=== PATIENT | male | born 1940 | race Caucasian/White ===

== ENCOUNTER → 2018-03-11 | Outpatient (CLI) | payer MEDICARE ==
[~2018-03-11] MED LIST: ISOVUE-370 50ML VIAL IV ONE
== END | disposition home or self-care (01) ==
LOC: OIH 09:00
PROVIDERS: ATTEND Internal Medicine Cardiovascular Disease
DX: I71.2 Thoracic aortic aneurysm, without rupture (principal)
CPT/HCPCS: 71275; 74174; Q9967

== ENCOUNTER → 2019-08-04 | Outpatient (CLI) | payer MEDICARE ==
[~2019-08-04] MED LIST changes: +IOHEXOL 350 MG/ML 100ML INFUS..BTL IV ONE; -ISOVUE-370 50ML VIAL IV ONE
== END | disposition home or self-care (01) ==
LOC: RAH 07:59
PROVIDERS: ATTEND Internal Medicine Cardiovascular Disease
DX: I71.2 Thoracic aortic aneurysm, without rupture (principal); N28.1 Cyst of kidney, acquired; K44.9 Diaphragmatic hernia without obstruction or gangrene; I25.10 Atherosclerotic heart disease of native coronary artery without angina pectoris; M51.35 Other intervertebral disc degeneration, thoracolumbar region
CPT/HCPCS: 71275; Q9967

== ENCOUNTER → 2020-11-21 | Outpatient (CLI) | payer MEDICARE | END | disposition home or self-care (01) | LOC: OIH 13:14 | PROVIDERS: ATTEND Internal Medicine | DX: M19.041 Primary osteoarthritis, right hand (principal); M19.042 Primary osteoarthritis, left hand; M17.12 Unilateral primary osteoarthritis, left knee; M85.80 Other specified disorders of bone density and structure, unspecified site | CPT/HCPCS: 73560 ==

== ENCOUNTER → 2021-06-05 | Outpatient (CLI) | payer MEDICARE ==
[2021-06-05 16:36] LABS: CREATININE 1.1 mg/dL (0.5-1.5)
== END | disposition home or self-care (01) ==
LOC: LAB 10:00
PROVIDERS: ATTEND Internal Medicine Cardiovascular Disease
DX: I10 Essential (primary) hypertension (principal)
CPT/HCPCS: 36415; 82565; 84520

== ENCOUNTER → 2021-06-13 | Outpatient (CLI) | payer MEDICARE | END | disposition home or self-care (01) | LOC: RAH 08:55 | PROVIDERS: ATTEND Internal Medicine Cardiovascular Disease | DX: I71.2 Thoracic aortic aneurysm, without rupture (principal); N28.1 Cyst of kidney, acquired | CPT/HCPCS: 71260; Q9967 ==

== ENCOUNTER → 2021-06-17 | Outpatient (CLI) | payer MEDICARE ==
[~2021-06-17] VITALS: Ht 177.8 cm; Wt 81.2 kg
[~2021-06-17] MED LIST changes: -IOHEXOL 350 MG/ML 100ML INFUS..BTL IV ONE; +REGADENOSON 0.4 MG/5 ML PF SYG IVP SCH
== END | disposition home or self-care (01) ==
LOC: SHCH 08:52
PROVIDERS: ATTEND Internal Medicine Cardiovascular Disease
DX: I48.0 Paroxysmal atrial fibrillation (principal); R06.09 Other forms of dyspnea
CPT/HCPCS: 78452; 93017; 96374; A9500 ×2; J2785

== ENCOUNTER 2021-08-07 05:54 | Day surgery (SDC) | payer MEDICARE ==
[2021-08-05 12:02] LABS: BASOPHILS % (AUTO) 0.5 % (0.0-5.0); EOSINOPHILS % (AUTO) 1.2 % (0.0-8.0); HEMATOCRIT 49.3 % (42-54); LYMPHOCYTES % (AUTO) 14.3 % (21.0-51.0); MEAN CORPUSCULAR HEMOGLOBIN 31.4 pg (27.0-33.0); MEAN CORPUSCULAR HGB CONC 32.7 g/dL (32.0-36.0); MEAN CORPUSCULAR VOLUME 96.3 fL (79-99); MONOCYTES % (AUTO) 10.7 % (3.0-13.0); NEUTROPHILS % (AUTO) 73.1 % (40.0-77.0); PLATELET COUNT (AUTO) 166 K/uL (130-400); RED BLOOD CELL COUNT(AUTO) 5.12 MIL/uL (4.50-6.20); RED CELL DISTRIBUTION WIDTH 12.2 % (11.0-15.5); WHITE BLOOD COUNT (AUTO) 8.1 K/uL (4.8-10.8)
[2021-08-05 12:07] LABS: APPEARANCE,URINE Clear (CLEAR); BILIRUBIN,URINE Negative (NEGATIVE); COLOR,URINE Yellow (YELLOW); GLUCOSE, URINE (UA) Negative (NEGATIVE); KETONES,URINE Negative (NEGATIVE); LEUKOCYTE ESTERASE ,URINE Negative (NEGATIVE); NITRATE,URINE Negative (NEGATIVE); OCCULT BLOOD,URINE Negative (NEGATIVE); PH,URINE 6.5 (5.0-8.0); PROTEIN,URINE Negative (NEGATIVE)
[2021-08-05 12:11] LABS: CREATININE 1.2 mg/dL (0.5-1.5); POTASSIUM 5.5 mmol/L (3.5-5.1)
[2021-08-05 12:13] LABS: INR 1.02 (0.85-1.15); PROTHROMBIN TIME 11.1 SEC (9.6-11.6)
[2021-08-06 10:48] VITALS: BP 115/67
[~2021-08-07] VITALS: Ht 177.8 cm; Wt 80.3 kg
[2021-08-07] VITALS (11 sets, daily range): BP systolic 120–138; BP diastolic 68–85
[~2021-08-07 05:54] MED LIST changes: +0.9% NACL 500ML IV.SOLN 500 ML IV SCH; +ACETAMINOPHEN 325 MG TAB PO PRN; +APIX5TAB PO; +BRIN8DRO OP; +LISI20TA24 PO; +LOVA20TA3 PO; +NETA2.5D3 OP; -REGADENOSON 0.4 MG/5 ML PF SYG IVP SCH; +SENN8.6T90 PO
[2021-08-07] MEDS ORDERED: 0.9%NACL 1000ML 1,000 ML IV ONE (06:09)
[2021-08-07 06:40] LABS: CREATININE 1.2 mg/dL (0.5-1.5); POTASSIUM 4.5 mmol/L (3.5-5.1)
[2021-08-07] MEDS ORDERED: SODIUM BICARB 50MEQ 50ML VIAL 50 ML ONE (07:13)
[2021-08-07] MEDS ORDERED: NITROGLYCERIN 50MG VIAL IV ONE (07:13)
[2021-08-07] MEDS ORDERED: HEPARIN 10,000 UNIT/10ML (1,000 UNIT/ML) VIAL ONE (07:13)
[2021-08-07] MEDS ORDERED: IOHEXOL-350 50ML VIAL IV ONE ×2 (07:13→07:42)
[2021-08-07] MEDS ORDERED: LIDOCAINE HCL 400MG/20ML VIAL ONE (07:14)
[2021-08-07] MEDS ORDERED: IOHEXOL 350 MG/ML 100ML INFUS..BTL IV ONE (07:14)
[2021-08-07] MEDS ORDERED: MEPERIDINE-PF 25 MG/ML SYG ONE (07:36)
[2021-08-07] MEDS ORDERED: MIDAZOLAM HCL 1 MG/ML 2ML VIAL ONE (07:37)
[2021-08-07] MEDS ORDERED: 0.9%NACL 1000ML 1,000 ML IV SCH (08:30)
== END 2021-08-07 14:35 | disposition home or self-care (01) ==
LOC: DAH 05:54
PROVIDERS: ATTEND Internal Medicine Cardiovascular Disease
DX: I25.10 Atherosclerotic heart disease of native coronary artery without angina pectoris (principal); I71.4 Abdominal aortic aneurysm, without rupture; E86.0 Dehydration; I42.9 Cardiomyopathy, unspecified; J44.9 Chronic obstructive pulmonary disease, unspecified; I49.1 Atrial premature depolarization; I35.1 Nonrheumatic aortic (valve) insufficiency; I49.5 Sick sinus syndrome; E78.5 Hyperlipidemia, unspecified; I10 Essential (primary) hypertension; F41.9 Anxiety disorder, unspecified; Z79.01 Long term (current) use of anticoagulants; Z79.899 Other long term (current) drug therapy
CPT/HCPCS: 36415 ×2; 71045; 80048 ×2; 81003; 85025; 85610; 85730; 93005; 93458; 93567; A4215; A4216; A4221; A4222; A4223 ×3; A4600; A4606; A4663; C1760; C1894; J1644; J2175; J2250; J3490 ×3; J7030; Q9965; Q9967 ×3; 96360; 96374; 99156; 99157

== ENCOUNTER 2021-10-21 16:55 | Emergency (ER) | payer MEDICARE ==
[~2021-10-21] VITALS: Ht 172.7 cm; Wt 74.8 kg
[~2021-10-21 16:55] MED LIST changes: -0.9% NACL 500ML IV.SOLN 500 ML IV SCH; -ACETAMINOPHEN 325 MG TAB PO PRN
[2021-10-21 17:07] VITALS: BP 95/60
[2021-10-21] MEDS ORDERED: DIPH,PERTUSS(ACELL),TET VAC/PF 0.5 ML VIAL IM ONE (17:30)
[2021-10-21] MEDS ORDERED: TETANUS/DIPHTHERIA TOXOID [ADULT] 0.5 ML VIAL IM ONE ×3 (18:02→18:30)
== END 2021-10-21 20:29 | disposition home or self-care (01) ==
LOC: EDH 16:55
DX: S63.614A Unspecified sprain of right ring finger, initial encounter (principal); S63.501A Unspecified sprain of right wrist, initial encounter; S00.83XA Contusion of other part of head, initial encounter; S60.511A Abrasion of right hand, initial encounter; S60.512A Abrasion of left hand, initial encounter; S80.212A Abrasion, left knee, initial encounter; S80.211A Abrasion, right knee, initial encounter; E78.00 Pure hypercholesterolemia, unspecified; I10 Essential (primary) hypertension; I25.10 Atherosclerotic heart disease of native coronary artery without angina pectoris; I48.91 Unspecified atrial fibrillation; Z79.01 Long term (current) use of anticoagulants; Z79.899 Other long term (current) drug therapy; W01.0XXA Fall on same level from slipping, tripping and stumbling without subsequent striking against object, initial encounter; X58.XXXA Exposure to other specified factors, initial encounter; Y93.89 Activity, other specified; Y92.89 Other specified places as the place of occurrence of the external cause; Y99.8 Other external cause status
CPT/HCPCS: 29130; 70450; 73110; 73130; 90471; 90714; 90715

== ENCOUNTER → 2022-11-12 | Outpatient (CLI) | payer MEDICARE | END | disposition home or self-care (01) | LOC: SHCH 13:15 | PROVIDERS: ATTEND Internal Medicine Cardiovascular Disease | DX: I48.92 Unspecified atrial flutter (principal) | CPT/HCPCS: 93306 ==

== ENCOUNTER → 2024-08-31 | Outpatient (CLI) | payer MEDICARE ==
[2024-08-31 16:26] LABS: CREATININE 1.2 mg/dL (0.5-1.3); POTASSIUM 4.8 mmol/L (3.5-5.1)
== END | disposition home or self-care (01) ==
LOC: LAB 13:16
PROVIDERS: ATTEND Internal Medicine Cardiovascular Disease
DX: I10 Essential (primary) hypertension (principal)
CPT/HCPCS: 36415; 80048

== ENCOUNTER → 2024-09-08 | Outpatient (CLI) | payer MEDICARE ==
[~2024-09-08] MED LIST changes: +IOHEXOL 350 MG/ML 100ML INFUS..BTL IV ONE
--- NOTE | 2024-09-08 10:17 | HMCIMG ---
CT ANGIO CHEST REASON: Thoracic aortic aneurysm, without ruptur COMPARISON: 02/10/2022 TECHNIQUE: Images are obtained from thoracic inlet through the lung bases during bolus IV contrast infusion, 100 cc Omnipaque 350. 2-D reconstruction images were then performed in the sagittal and coronal plane. FINDINGS: There is enlargement of the a sending aorta, this measures 4.8 x 5.0 cm. Transverse and descending thoracic aorta are normal caliber. There is no evidence of dissection. There are mild atherosclerotic changes in the descending thoracic aorta. Central pulmonary arteries appear unremarkable. Lungs are clear. There are no focal masses or infiltrates. There is no pleural effusion. There is no pulmonary vascular congestion. Chest wall structures appear normal. There are cysts associated with the right kidney, upper abdominal structures appear otherwise unremarkable. IMPRESSION: 1. Stable ascending aortic aneurysm, 4.8 x 5.0 cm, this measured 4.9 x 5.0 cm on the previous exam. 2. Otherwise unremarkable exam.
== END | disposition home or self-care (01) ==
LOC: RAH 08:41
PROVIDERS: ATTEND Internal Medicine Cardiovascular Disease
DX: I71.20 Thoracic aortic aneurysm, without rupture, unspecified (principal); N28.1 Cyst of kidney, acquired
CPT/HCPCS: 71275; Q9967

== ENCOUNTER → 2024-09-18 | Outpatient (CLI) | payer MEDICARE ==
[~2024-09-18] MED LIST changes: -IOHEXOL 350 MG/ML 100ML INFUS..BTL IV ONE
--- NOTE | 2024-09-21 09:01 | HMCSR ---
APPROVED REPORT EXAM: Two-dimensional and M-mode echocardiogram with Doppler and color Doppler. INDICATION ICD: I35.1 Non-rheumatic aortic valve regurgitation 2D Dimensions RVDd4.4 cmLVEF(%)53.6 (>50%)LVED Vol(simp.)161.0 mL IVSd1.2 (0.7-1.1cm)FS(%)28 %LVES Vol(simp.)75.0 mL LVDd5.6 (3.8-5.6cm)Ao Root(2D)4.0 (2.0-3.7cm)LVEF(%, simp.)53 % PWd1.2 (0.7-1.1cm)LVOT diam2.3 (1.8-2.4cm)LA ESV INDEX (BP)53.69 mL/m2 LVDs4.0 (2.5-4.0cm)IVC diam2.1 cm Aortic Valve AoV Vmax1.5 m/Navid Peak GR9.3 mmHgLVOT Vmax1.0 m/s AoV VTI0.4 mAo Mean GR4.6 mmHgLVOT VTI0.28 m MARY (VMAX)3.1 cm2Al P1/2T631 msAVA (VTI) 3.1 cm2 Mitral Valve MV E Vmax57.8 cm/sDECEL Vmnn151 ms MV A Vmax48.3 cm/sP 1/2 T58 ms E/A ratio1.2MVA (PHT)3.8 cm2 MR Max PG116 mmHg TDI E/E' Medial9.1E/E' Lateral6.6 Pulmonary Valve PV Vmax0.7 m/sPV VTI0.20 mPV Mean GR1 mmHg PV Peak GR2.0 mmHg Tricuspid Valve TR Vmax2.3 m/sRAP (EST) 8 wwSqGYTL29.5 mmHg TR Peak GR21.5 mmHg Left Ventricle The left ventricle is borderline dilated. Mild lateral and apical hypokinesis. There is mild concentr ic left ventricular hypertrophy. LVEF is 50-55%. No left ventricle thrombus noted on this study. Inde terminate diastolic dysfunction. Right Ventricle The right ventricle is normal size. The right ventricular systolic function is normal. Atria The left atrium is moderately to severely dilated. The right atrium is moderately dilated. Aortic Valve Aortic valve is trileaflet. Aortic valve leaflets are sclerotic but open well. Mild to moderate aorti c regurgitation. There is no aortic valvular stenosis. Mitral Valve Mitral valve leaflets are mildly sclerotic but open well. Mitral regurgitation is mild to moderate. T here is no mitral valve stenosis. Tricuspid Valve The tricuspid valve leaflets appear normal. There is trace to mild tricuspid regurgitation. Pulmonic Valve Pulmonic valve is not well visualized. There is trace pulmonic valvular regurgitation. Great Vessels Aortic root is mildly dilated. Ascending aorta is dilated. IVC is dilated and collapses >50% with ins piration. Pericardium No pericardial effusion. Conclusion The left ventricle is borderline dilated. There is mild concentric left ventricular hypertrophy. LVEF is 50-55%. Mild lateral and apical hypokinesis. The right ventricle is normal size. The left atrium is moderately to severely dilated. The right atrium is moderately dilated. Aortic valve is trileaflet. Aortic valve leaflets are sclerotic but open well. Mild to moderate aortic regurgitation. Mitral valve leaflets are mildly sclerotic but open well. Mitral regurgitation is mild to moderate. There is trace to mild tricuspid regurgitation. There is trace pulmonic valvular regurgitation. Aortic root is mildly dilated. IVC is dilated and collapses >50% with inspiration. No pericardial effusion.
== END | disposition home or self-care (01) ==
LOC: SHCH 08:13
PROVIDERS: ATTEND Internal Medicine Cardiovascular Disease
DX: I08.3 Combined rheumatic disorders of mitral, aortic and tricuspid valves (principal)
CPT/HCPCS: 93306

== ENCOUNTER 2025-02-09 07:18 | Day surgery (SDC) | payer MEDICARE ==
[2025-02-05 12:46] LABS: BASOPHILS # (AUTO) 0.02 K/uL (0.00-0.20); BASOPHILS % (AUTO) 0.3 % (0.0-5.0); EOSINOPHILS # (AUTO) 0.07 K/uL (0.00-0.70); EOSINOPHILS % (AUTO) 1.2 % (0.0-8.0); HEMATOCRIT 48.9 % (42-54); IMMATURE GRANULOCYTE ABSOLUTE 0.02 K/uL (0-1); LYMPHOCYTES # (AUTO) 1.1 K/uL (1.0-4.8); LYMPHOCYTES % (AUTO) 19.1 % (21.0-51.0); MEAN CORPUSCULAR HEMOGLOBIN 31.6 pg (27.0-33.0); MEAN CORPUSCULAR HGB CONC 32.9 g/dL (32.0-36.0); MEAN CORPUSCULAR VOLUME 96.1 fL (79-99); MONOCYTES # (AUTO) 0.6 K/uL (0.1-1.0); MONOCYTES % (AUTO) 10.1 % (3.0-13.0); NEUTROPHILS # (AUTO) 4.1 K/uL (1.8-7.7); PLATELET COUNT (AUTO) 165 K/uL (130-400); RED BLOOD CELL COUNT(AUTO) 5.09 MIL/uL (4.50-6.20); RED CELL DISTRIBUTION WIDTH 12.8 % (11.0-15.5); WHITE BLOOD COUNT (AUTO) 5.9 K/uL (4.8-10.8)
[2025-02-05 12:53] VITALS: BP 133/78; PULSE 72; RESP 18; TEMP 97.8
[2025-02-05 13:02] LABS: CREATININE 1.3 mg/dL (0.5-1.3); POTASSIUM 5.8 mmol/L (3.5-5.1)
[2025-02-05 13:05] LABS: B-TYPE NATRIURETIC PEPTIDE 200 pg/mL (0-100)
[2025-02-05 13:08] LABS: INR 1.06 (0.85-1.15); PROTHROMBIN TIME 11.2 SEC (9.6-11.6)
[2025-02-05 13:09] LABS: PARTIAL THROMBOPLASTIN TIME 28.8 SEC (26.3-35.5)
--- NOTE | 2025-02-07 12:39 | NUR ---
RE: LABS REPORTED BMP RESULTS TO COURT SOSA. RECEIVED ORDERS TO HAVE PATIENT COME IN TODAY TO REDRAW POTASSIUM.
[~2025-02-09] VITALS: Ht 172.7 cm; Wt 78.3 kg
[~2025-02-09 07:18] MED LIST changes: -BRIN8DRO OP; +DRON400T7 PO; +LISI10TA24 PO; -LISI20TA24 PO; -LOVA20TA3 PO; +LOVA40TA2 PO; -NETA2.5D3 OP; +OMEP20TA20 PO; +SENN-2 PO; -SENN8.6T90 PO
[2025-02-09 07:40] VITALS: BP 129/85; PULSE 77; RESP 18; TEMP 97.5
--- NOTE | 2025-02-09 08:43 | EKG ---
[facility] Test Date: 2025-02-09 Test Time: 07:34:57 Pat Name: DEARBrody [place] Department: [facility] Room: [facility] Gender: M Vegetable Tier: [id number] : 1940 Requested By: HÉCTOR BOLANOS Order Number: [id number] Reading MD: Bing Hall Measurements Intervals [place] Rate: 84 P: 0 MA: 0 QRS: 45 QRSD: 90 T: -12 QT: 400 QTc: 474 Interpretive Statements Atrial fibrillation Compared to ECG 08/05/2021 11:30:06 Sinus rhythm no longer present Atrial premature complex(es) no longer present Electronically Signed On 02-09-2025 09:34:16 CDT by Bing Hall Please click the below link to view image of tracing.
[2025-02-09] MEDS: 0.9%NACL 1000ML 1,000 ML IV SCH (08:45)
[2025-02-09] MEDS ORDERED: LIDOCAINE HCL MPF 1% 5ML VIAL ONE (09:09)
[2025-02-09] MEDS ORDERED: phenylEPHRINE HCL 10 MG/ML 1ML VIAL IV ONE (09:09)
[2025-02-09] MEDS ORDERED: proPOFol 10 MG/ML 20ML VIAL IV ONE (09:10)
--- NOTE | 2025-02-09 11:02 | NUR ---
PT SYNCRONYZED CARDIOVERTED [address] BOLANOS AT THIS TIME VSS NAD
--- NOTE | 2025-02-09 11:08 | NUR ---
PT AWAKE SPEAKING WITH STAFF VSS NAD
[2025-02-09 11:20] VITALS: BP 117/73; PULSE 58; RESP 16
[2025-02-09 11:35] VITALS: BP 114/73; PULSE 53; RESP 16
[2025-02-09 11:50] VITALS: BP 117/65; PULSE 52; RESP 16
--- NOTE | 2025-02-09 16:56 | EKG ---
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
--- NOTE | 2025-03-05 11:57 | PRN ---
Procedure Note Date of procedure: 02/09/2025 Diagnosis: Persistent atrial fibrillation Procedure: Cardioversion Physician: Fredy Bolanos MD The patient was brought to the day patient area in a fasting state. Anesthesia was provided by the anesthesia service. Cardioversion was performed with a synchronized shock at 200 joules resulting in sinus rhythm. The patient tolerated the procedure well. Final diagnosis: Persistent atrial fibrillation, status post successful cardi oversion Disposition: The patient will be discharged later today and will follow up with me in the office in approximately two weeks. FREDY BOLANOS MD March 05, 2025 11:56
== END 2025-02-09 12:05 | disposition home or self-care (01) ==
LOC: DAH 07:18
PROVIDERS: ATTEND Internal Medicine Cardiovascular Disease
DX: I48.19 Other persistent atrial fibrillation (principal); I49.5 Sick sinus syndrome; I10 Essential (primary) hypertension; E78.5 Hyperlipidemia, unspecified; F41.9 Anxiety disorder, unspecified; Z88.8 Allergy status to other drugs, medicaments and biological substances; Z79.899 Other long term (current) drug therapy
CPT/HCPCS: 80048; 83880; 85025; 85610; 85730; 36415 ×2; 84132; 92960; 93005 ×2; J2704; J2371; J3490; A4620; A4215; A4222; A4221; A4663; A4216; A4606; A4223 ×3

== ENCOUNTER → 2025-04-23 | Outpatient (CLI) | payer MEDICARE ==
--- NOTE | 2025-04-24 06:21 | HMCIMG ---
EXAM: CR Chest, 1 view. CLINICAL HISTORY: Cough. COMPARISON: None provided. FINDINGS: The lungs show no infiltrates or other acute findings. No pleural effusion or pneumothorax. The cardiomediastinal silhouette is within normal limits. No acute osseous abnormality. IMPRESSION: No acute cardiopulmonary pathology is evident. /[place]
== END | disposition home or self-care (01) ==
LOC: RAH 15:44
PROVIDERS: ATTEND Family Medicine
DX: R05.9 Cough, unspecified (principal)
CPT/HCPCS: 71045

== ENCOUNTER → 2025-05-14 | Outpatient (CLI) | payer MEDICARE ==
--- NOTE | 2025-05-15 00:50 | HMCIMG ---
EXAMINATION: ULTRASOUND OF THE ABDOMEN WITH COLOR DOPPLER. CLINICAL HISTORY: Abnormal LFT. COMPARISON: CTA chest abdomen and pelvis dated 03/11/2018. TECHNIQUE: Real-time grayscale ultrasound images of the abdomen. In addition, color Doppler is medically necessary to perform in order to evaluate vascularity and blood flow. FINDINGS: Liver: Normal in caliber, the right hepatic lobe measures 13.1 cm in the craniocaudal dimension. There is normal echogenicity of the hepatic parenchyma. There is no focal hepatic abnormality or intrahepatic biliary ductal dilatation. There is normal spectral Doppler of the main portal vein. Gallbladder: Within normal limits with normal wall thickness (0.3 cm). No hyperemia or pericholecystic free fluid. There is no cholelithiasis. Common bile duct is normal in caliber, measuring 0.4 cm. Spleen is normal in caliber and measures 10.0 x 2.6 x 2.8 cm in craniocaudal, AP and transverse dimensions respectively. No focal lesions. Pancreas: Head and body appear normal in caliber and echotexture. No calcification or dilated pancreatic duct. Tail is obscured by overlying bowel gas. The kidneys are normal in caliber, the right kidney measures 10.0 x 4.3 x 4.0 cm and the left kidney measures 11.6 x 5.0 x 5.4 cm in craniocaudal, AP, and transverse dimensions respectively. There is normal renal cortical thickness, and cortical echogenicity. There is no renal calculus or hydronephrosis. There is a cortical cyst that measures 6.5 x 6.5 x 7.1 cm in the right renal upper pole with septation. There is a simple parapelvic cyst that measures 2.9 x 2.2 x 2.7 cm in the left renal mid pole. Visualized aspects of the abdominal aorta and inferior vena cava are unremarkable. IMPRESSION: Right renal complex cortical cyst. Left renal simple parapelvic cyst. Recommend CT abdomen and pelvis. /[place]
== END | disposition home or self-care (01) ==
LOC: RAH 08:49
PROVIDERS: ATTEND Family Medicine
DX: N28.1 Cyst of kidney, acquired (principal); R79.89 Other specified abnormal findings of blood chemistry
CPT/HCPCS: 76700

== ENCOUNTER 2025-05-23 08:35 | Observation (INO) | payer MEDICARE, OTHER ==
[~2025-05-23] VITALS: Ht 172.7 cm; Wt 75.3 kg
[2025-05-23 09:17] LABS: NUCLEATED RED BLOOD CELLS 0.0 % (0.0-0.19); PLATELET COUNT (AUTO) 147.0 K/uL (130-400); RED BLOOD CELL COUNT(AUTO) 5.14 MIL/uL (4.50-6.20); RED CELL DISTRIBUTION WIDTH 13.2 % (11.0-15.5); WHITE BLOOD COUNT (AUTO) 5.9 K/uL (4.8-10.8)
--- NOTE | 2025-05-23 09:18 | EKG ---
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
[2025-05-23 09:31] LABS: CREATININE 1.2 mg/dL (0.5-1.3); GLOMERULAR FILTR. RATE CALC 59.0 mL/min (>90); GLUCOSE,RANDOM 136.0 mg/dL (70-105); SODIUM SERUM 142.0 mmol/L (136-145); UREA NITROGEN, BLOOD 22.0 mg/dL (7-18)
[2025-05-23 09:43] LABS: ASPARTATE AMINOTRANSFERASE 30.0 U/L (10-37); TOTAL PROTEIN, SERUM 6.4 g/dL (6.0-8.3)
[2025-05-23] MEDS: AMIOdarone 150MG/100ML BAG 100 ML IV ONE (09:50)
[2025-05-23] MEDS: AMIODARONE 360MG/200ML BAG 200 ML IV ONE (10:16)
[2025-05-23 10:55] VITALS: BP 132/83; PULSE 103; RESP 12; TEMP 98.5
--- NOTE | 2025-05-23 10:55 | NUR ---
GAVE REPORT TO NINA SOUZA.
[2025-05-23 11:00] VITALS: BP_SYST 136; BP_SYST 96; BP_DIAS 57; BP_DIAS 83; PULSE 79; PULSE 87; RESP 16; RESP 19; TEMP 97.5; TEMP 98.5
[2025-05-23 11:23] VITALS: O2SAT 99
[2025-05-23] MEDS ORDERED: VIT1CAPS47 PO (13:40)
[2025-05-23] MEDS ORDERED: VYZULTA OU (13:40)
--- NOTE | 2025-05-23 13:49 | NUR ---
DR. BOLANOS STATED HE WILL COORDINATE ANESTHESIA FOR CARDIOVESION HIMSELF
[2025-05-23 16:00] VITALS: BP 135/77; PULSE 63; RESP 19; TEMP 98.1
--- NOTE | 2025-05-23 18:29 | HMCSR ---
APPROVED REPORT EXAM: Two-dimensional and M-mode echocardiogram with Doppler and color Doppler. INDICATION ICD: Persistent atrial fibrillation 2D Dimensions RVDd4.0 cmLVEF(%)72.2 (>50%)LVED Vol(simp.)128.0 mL IVSd1.1 (0.7-1.1cm)FS(%)41 %LVES Vol(simp.)73.0 mL LVDd4.3 (3.8-5.6cm)LA (2D)4.1 (1.6-4.0cm)LVEF(%, simp.)43 % PWd1.3 (0.7-1.1cm)Ao Root(2D)4.2 (2.0-3.7cm) LVDs2.6 (2.5-4.0cm)LVOT diam2.0 (1.8-2.4cm) IVC diam2.2 cm Deformation Strain Apical 4-14.4 % Apical 2-12.8 % Apical 3-14.8 % Global Strain-14.0 % M-Mode Dimensions EPSS1.0 cm LA (MM)5.4 (1.6-4.0cm) Ao Root(MM)3.8 (2.0-3.7cm) Aortic Valve AoV Vmax1.2 m/Navid Peak GR6.1 mmHgLVOT Vmax1.1 m/s AoV VTI0.3 mAo Mean GR4.1 mmHgLVOT VTI0.23 m MARY (VMAX)2.98 cm2Al P1/2T517 msAVA (VTI) 2.8 cm2 Mitral Valve MV E Vmax61.9 cm/sDECEL Zrsy396 ms MV A Vmax18.9 cm/sP 1/2 T63 ms E/A ratio3.3MVA (PHT)3.5 cm2 TDI E/E' Medial6.5E/E' Lateral5.9 Medial E' Peak V9.53 cm/sLateral E' Peak V10.50 cm/s Tricuspid Valve TR Vmax2.1 m/sRAP (EST) 15 fsXcMRHA22.4 mmHg TR Peak GR18.4 mmHg Left Ventricle The left ventricle is normal size. GLS -14.0% Mild increased posterior wall thickness. LVEF is 40-45% . The left ventricular diastolic function is normal. Right Ventricle The right ventricle is normal size. The right ventricular systolic function is normal. RV GLS -15.0% Atria The left atrium size is normal. The right atrium is moderately dilated. Aortic Valve Aortic valve is trileaflet and opens well. Mild aortic regurgitation is present. There is no aortic v alvular stenosis. Mitral Valve The mitral valve is normal in structure. There is mild mitral valve regurgitation noted. There is no mitral valve stenosis. Tricuspid Valve The tricuspid valve is normal in structure. There is trace of tricuspid valve regurgitation noted. Pulmonic Valve The pulmonary valve is normal in structure. There is no pulmonic valvular regurgitation. Great Vessels The aortic root is normal in size. IVC is dilated and collapses <50% with inspiration. Pericardium There is no pericardial effusion. Other Information Quality : Adequate Conclusion The left ventricle is normal size. Mild increased posterior wall thickness. LVEF is 40-45%. The left ventricular diastolic function is normal. The right ventricle is normal size. The right ventricular systolic function is normal. RV GLS -15.0% The left atrium size is normal. The right atrium is moderately dilated. Mild aortic regurgitation is present. There is mild mitral valve regurgitation noted. There is no pericardial effusion.
[2025-05-23 20:00] VITALS: O2SAT 98
[2025-05-23 20:18] VITALS: BP 139/89; PULSE 88; RESP 18; TEMP 98.6
[2025-05-24 00:14] VITALS: BP 138/86; PULSE 91; RESP 18; TEMP 98.2
[2025-05-24 05:17] VITALS: BP 131/87; PULSE 104; RESP 18; TEMP 98.6
[2025-05-24] MEDS ORDERED: AMIO200T73 PO (07:54)
[2025-05-24 08:00] VITALS: BP 132/73; PULSE 78; RESP 20; TEMP 97.9
[2025-05-24 08:55] LABS: CREATININE 1.2 mg/dL (0.5-1.3); GLOMERULAR FILTR. RATE CALC 59.0 mL/min (>90); GLUCOSE,RANDOM 90.0 mg/dL (70-105); SODIUM SERUM 143.0 mmol/L (136-145); UREA NITROGEN, BLOOD 17.0 mg/dL (7-18)
--- NOTE | 2025-05-24 12:58 | NUR ---
DCP: HOME met with pt and his life partner of 9yrs Re Barnett [phone]. Pt's daughter Merlene Mckenna [phone] is pt's MPOA, she is available by phone. Prior to admission, pt states he was independent of his ADLS, no DME or HH services needed. Pt still active and was driving. PCP is Rainer Ramos and uses [facility] for rx. Discussed dc needs. At this time, pt hopeful that he can return home and Re will assist him at needed.CM to follow and assist as needed Addendum: 05/24/25 at 1302 by NGUYỄN GONCALVES Amended: Links added.
[2025-05-24 13:32] VITALS: O2SAT 98
[2025-05-24] MEDS ORDERED: GLYCOPYRROLATE 0.2 MG/ML 5 ML VIAL ONE (15:10)
[2025-05-24] MEDS ORDERED: LIDOCAINE PF 100MG/5ML (2%) SYRINGE 5ML ONE (15:10)
[2025-05-24 16:00] VITALS: BP 130/84; PULSE 91; RESP 20; TEMP 98.5
--- NOTE | 2025-05-25 05:34 | EKG ---
[facility] Test Date: 2025-05-24 Test Time: 15:23:43 Pat Name: ESTHERKimBrody IRWINTON Department: [facility] Room: 232 1 Gender: M Pr Intern: mustapha : 1940 Requested By: HÉCTOR BOLANOS Order Number: [id number] Reading MD: Parish Raza Measurements Intervals [place] Rate: 59 P: 58 TX: 184 QRS: 50 QRSD: 89 T: 53 QT: 455 QTc: 424 Interpretive Statements Sinus rhythm Atrial premature complexes Compared to ECG 05/23/2025 09:13:17 Atrial premature complex(es) now present Atrial fibrillation no longer present Electronically Signed On 05-27-2025 10:45:14 CDT by Parish Raza Please click the below link to view image of tracing.
--- NOTE | 2025-06-06 14:20 | PRN ---
Procedure Note Date of procedure: 05.24.2025 Diagnosis: Persistent atrial fibrillation Procedure: Cardioversion Physician: Fredy Bolanos MD The patient was brought to the day patient area in a fasting state. Anesthesia was provided by the anesthesia service. Cardioversion was performed with a synchronized shock at 120 joules resulting in sinus rhythm. The patient tolerated the procedure well. Final diagnosis: Persistent atrial fibrillation, status post successful cardi oversion Disposition: The patient will be discharged later today and will follow up with me in the office in approximately two weeks. FREDY BOLANOS MD Jun 06, 2025 14:20
== END 2025-05-24 18:20 | disposition home or self-care (01) ==
LOC: EDH 08:35 → EDHIP 08:36 → 2AH 10:47
PROVIDERS: ADMIT Internal Medicine Cardiovascular Disease; ATTEND Internal Medicine Cardiovascular Disease
DX: I48.0 Paroxysmal atrial fibrillation (principal); I10 Essential (primary) hypertension; Z79.899 Other long term (current) drug therapy
CPT/HCPCS: 96376; 96365; 96366 ×2; 84443; 83735; 84132; 80053; 83880; 85027; 84439; 36415 ×2; 93306; 93356; 93005 ×2; 92960; 80048; G0378 ×34; G0379; J7060; J0282; J0283 ×2; J2003; J2704; J3490

== ENCOUNTER → 2025-05-30 | Outpatient (CLI) | payer OTHER ==
[~2025-05-30] MED LIST changes: +AMIO200T73 PO; -DRON400T7 PO; +IOHEXOL-350 75 ML VIAL IV ONE; -LISI10TA24 PO; -LOVA40TA2 PO; -OMEP20TA20 PO; +VIT1CAPS47 PO; +VYZULTA OU
--- NOTE | 2025-05-30 12:49 | HMCIMG ---
EXAM: CT Abdomen and Pelvis with Intravenous Contrast CLINICAL HISTORY: 84 year old male with cyst of kidney TECHNIQUE: Axial computed tomography images of the abdomen and pelvis with intravenous contrast. Dose reduction technique was used including one or more of the following: automated exposure control, adjustment of mA and kV according to patient size, and/or iterative reconstruction. CONTRAST: 75 ml of Omnipaque 350 IV contrast. Oral contrast is seen in the small bowel and colon. COMPARISON: Similar to prior US abdominal dated 05/14/2025. FINDINGS: LUNG BASES: No basilar airspace consolidation or pleural effusion. LIVER: Unremarkable. GALLBLADDER AND BILE DUCTS: Unremarkable. No calcified stone. No ductal dilation. PANCREAS: Unremarkable. SPLEEN: Unremarkable. ADRENAL GLANDS: Unremarkable. KIDNEYS, URETERS, AND BLADDER: Large right renal cysts. Moderate-sized left renal parapelvic cyst. No hydronephrosis or nephrolithiasis. Symmetric excretion of contrast in both kidneys. No ureteral or bladder calculi. STOMACH AND BOWEL: No obstruction. No wall thickening. No CT evidence of colitis or acute diverticulitis. APPENDIX: No CT evidence for appendicitis. PERITONEUM: No free fluid. No free air. LYMPH NODES: No lymphadenopathy. REPRODUCTIVE: Unremarkable as visualized. VASCULATURE: Atherosclerotic aorta and iliac bifurcation. No aortic aneurysm. ABDOMINAL WALL AND SOFT TISSUES: Small bilateral inguinal hernias containing mesenteric fat. BONES: No fracture or suspicious osseous abnormality. IMPRESSION: 1. Large right renal cysts and moderate-sized left renal parapelvic cyst, similar to prior US dated 05/14/2025. 2. Small bilateral inguinal hernias containing mesenteric fat only. /[place]
== END | disposition home or self-care (01) ==
LOC: RAH 08:10
PROVIDERS: ATTEND Family Medicine
DX: N28.1 Cyst of kidney, acquired (principal); K40.20 Bilateral inguinal hernia, without obstruction or gangrene, not specified as recurrent; R93.89 Abnormal findings on diagnostic imaging of other specified body structures; I70.0 Atherosclerosis of aorta
CPT/HCPCS: 74177; Q9967